=== PATIENT | female | born 1935 | race Caucasian/White ===

== ENCOUNTER → 2020-12-13 | Outpatient (REF) | payer MEDICARE, BC | LOC: M LAB REF 16:23 | PROVIDERS: ATTEND Physician Assistant Medical | DX: I10 Essential (primary) hypertension (principal) ==

== ENCOUNTER 2023-01-26 13:07 | Inpatient (IN) | payer BC, MEDICARE ==
[~2023-01-26] VITALS: Ht 162.6 cm; Wt 58.7 kg
[2023-01-26 14:25] LABS: BASO % 0.2 % (0.0-1.0); HEMATOCRIT 42.1 % (36.0-47.0); HEMOGLOBIN 14.1 g/dl (12.0-15.5); LYMPH # 1.5 10^3/uL (1.5-5.0); LYMPH % 5.8 % (24.0-44.0); MEAN CORPUSCULAR HEMOGLOBIN 31.7 pg (27.0-33.0); MEAN CORPUSCULAR HGB CONC 33.5 g/dl (32.0-36.5); MEAN CORPUSCULAR VOLUME 94.6 fl (80.0-96.0); MONO % 8.6 % (2.0-8.0); NEUTROPHILS % 84.7 % (36.0-66.0); PLATELET COUNT, AUTOMATED 257 10^3/uL (150-450); RED BLOOD COUNT 4.45 10^6/uL (4.00-5.40); WHITE BLOOD COUNT 24.8 10^3/uL (4.0-10.0)
[2023-01-26 14:43] LABS: ALBUMIN 4.2 G/DL (3.2-5.2); BILIRUBIN,DIRECT 0.4 MG/DL (<0.4); BILIRUBIN,TOTAL 1.6 MG/DL (0.3-1.2); TOTAL PROTEIN 7.2 G/DL (5.7-8.2)
[2023-01-26 14:50] LABS: INR 1.04; PROTHROMBIN TIME 13.8 SECONDS (12.5-14.5)
[2023-01-26 14:51] LABS: PARTIAL THROMBOPLASTIN TIME 27.2 SECONDS (24.8-34.2)
[2023-01-26 15:25] LABS: MONO # 2.1 10^3/uL (0.0-0.8)
[2023-01-26] MEDS ORDERED: ISOVUE-370 76% 100ML VIAL As Ordered ONE (17:28)
[2023-01-26] MEDS ORDERED: ONDANSETRON 4MG 2ML VIAL IV ONE (17:45)
[2023-01-26] MEDS: GASTROGRAFIN SOLUTION 30ML PO SCH ×2 (17:48→17:57)
[2023-01-26] MEDS ORDERED: cefTRIAXone SOD 1 GM in D5W MINI-BAG PLUS 50 ML IV SCH (22:00)
[2023-01-26] MEDS ORDERED: ATEN50TA2 PO (22:01)
[2023-01-26] MEDS ORDERED: LEVO75TA4 PO ×2 (22:01)
[2023-01-26] MEDS ORDERED: LEVO50TA5 PO (22:01)
[2023-01-26] MEDS ORDERED: CEPH500C PO (22:10)
[2023-01-26] MEDS ORDERED: LISI5TAB11 PO (22:10)
[2023-01-26] MEDS ORDERED: ONDA4TAB6 SL (22:10)
[2023-01-26] MEDS ORDERED: HOME MED LIST COMPLETE! XX SCH (22:15)
[2023-01-26] MEDS ORDERED: ONDANSETRON 4MG 2ML VIAL IV PRN (22:20)
[2023-01-26] MEDS ORDERED: SODIUM CHLORIDE 0.9% 1000ML IV SCH (22:20)
[2023-01-26] MEDS ORDERED: LR 1,000 ML IV SCH (23:00)
[2023-01-26 23:35] VITALS: BP 168/88; TEMP 96.2; O2SAT 95
[2023-01-27] VITALS (14 sets, daily range): BP systolic 108–176; BP diastolic 68–96; TEMP 98.1–102; O2SAT 95–98
[2023-01-27] MEDS ORDERED: NS 1,000 ML IV ONE (01:40)
[2023-01-27] MEDS ORDERED: ACETAMINOPHEN *IV* 1,000 MG in IV 1 EA IV ONE (02:00)
[2023-01-27] MEDS: PIPERACILLIN/TAZOBACTAM SOD 3.375 GM in D5W MINI-BAG PLUS 50 ML IV SCH ×4 (02:46→18:32)
[2023-01-27 05:59] LABS: HEMATOCRIT 32.2 % (36.0-47.0); MEAN CORPUSCULAR HEMOGLOBIN 31.9 pg (27.0-33.0); MEAN CORPUSCULAR HGB CONC 33.9 g/dl (32.0-36.5); MEAN CORPUSCULAR VOLUME 94.2 fl (80.0-96.0); PLATELET COUNT, AUTOMATED 161 10^3/uL (150-450); RED BLOOD COUNT 3.42 10^6/uL (4.00-5.40); WHITE BLOOD COUNT 28.3 10^3/uL (4.0-10.0)
[2023-01-27 06:13] LABS: HEMOGLOBIN 10.9 g/dl (12.0-15.5)
[2023-01-27] MEDS: LEVOTHYROXINE 50MCG TABLET (0.05MG) PO SCH (06:17)
[2023-01-27 06:36] LABS: ALBUMIN 2.6 G/DL (3.2-5.2); BILIRUBIN,TOTAL 1.3 MG/DL (0.3-1.2); CREATININE FOR GFR 1.05 MG/DL (0.55-1.30); GLOMERULAR FILTRATION RATE 52.7 (>32); POTASSIUM SERUM 3.4 MMOL/L (3.5-5.1); TOTAL PROTEIN 4.8 G/DL (5.7-8.2)
[2023-01-27] MEDS: lisinopriL 5 MG TAB PO SCH (09:46)
[2023-01-27] MEDS: PANTOPRAZOLE 40MG TAB (PROTONIX) PO SCH (09:46)
[2023-01-27] MEDS: HEPARIN SOD (PORCINE) 5000UNITS/ML 1ML VIAL/SYRINGE SC SCH ×2 (09:46→20:01)
[2023-01-27] MEDS ORDERED: NS 1,000 ML IV SCH (10:30)
[2023-01-27] MEDS ORDERED: POTASSIUM CHLORIDE 10MEQ SR TABLET PO ONE (11:00)
[2023-01-27] MEDS ORDERED: METOPROLOL TART 25 MG TABLET PO ONE (15:20)
[2023-01-27] MEDS: METOPROLOL 5 MG/5 ML VIAL IV SCH ×3 (15:45→16:14)
[2023-01-27] MEDS ORDERED: atenoloL 50 MG TAB PO SCH (21:00)
[2023-01-27] MEDS: ONDANSETRON 4MG 2ML VIAL IV SCH (23:21)
[2023-01-27] MEDS ORDERED: DIGOXIN INJ 0.5 MG/2 ML AMP IV ONE (23:55)
[2023-01-28] VITALS (10 sets, daily range): BP systolic 124–153; BP diastolic 69–89; TEMP 96.8–100.7; O2SAT 95–98
[2023-01-28] MEDS: PIPERACILLIN/TAZOBACTAM SOD 3.375 GM in D5W MINI-BAG PLUS 50 ML IV SCH ×4 (00:45→18:32)
[2023-01-28] MEDS ORDERED: diltiaZEM 125 MG in NS 100 ML IV SCH (01:05)
[2023-01-28] MEDS ORDERED: dilTIAZem 25MG/5ML VIAL IV ONE ×2 (01:05)
[2023-01-28] MEDS ORDERED: dilTIAZem 25MG/5ML VIAL IV STA (05:07)
[2023-01-28] MEDS ORDERED: DIGOXIN INJ 0.5 MG/2 ML AMP IV ONE ×2 (06:00→17:00)
[2023-01-28] MEDS: ONDANSETRON 4MG 2ML VIAL IV SCH ×3 (06:35→22:18)
[2023-01-28] MEDS: LEVOTHYROXINE 50MCG TABLET (0.05MG) PO SCH (06:36)
[2023-01-28 07:02] LABS: BASO % 0.1 % (0.0-1.0); HEMATOCRIT 36.1 % (36.0-47.0); HEMOGLOBIN 11.9 g/dl (12.0-15.5); LYMPH % 7.5 % (24.0-44.0); MEAN CORPUSCULAR HEMOGLOBIN 31.1 pg (27.0-33.0); MEAN CORPUSCULAR VOLUME 94.3 fl (80.0-96.0); MONO % 8.8 % (2.0-8.0); NEUTROPHILS # 21.7 10^3/uL (1.5-8.5); NEUTROPHILS % 82.8 % (36.0-66.0); PLATELET COUNT, AUTOMATED 193 10^3/uL (150-450); RED BLOOD COUNT 3.83 10^6/uL (4.00-5.40); WHITE BLOOD COUNT 26.3 10^3/uL (4.0-10.0)
[2023-01-28 07:22] LABS: CREATININE FOR GFR 1.06 MG/DL (0.55-1.30); GLOMERULAR FILTRATION RATE 52.1 (>32); POTASSIUM SERUM 4.1 MMOL/L (3.5-5.1)
[2023-01-28 07:39] LABS: MONO # 2.3 10^3/uL (0.0-0.8)
[2023-01-28 07:45] LABS: ALBUMIN 2.5 G/DL (3.2-5.2); BILIRUBIN,DIRECT 0.5 MG/DL (<0.4); BILIRUBIN,TOTAL 1.3 MG/DL (0.3-1.2); TOTAL PROTEIN 5.2 G/DL (5.7-8.2)
[2023-01-28] MEDS: HEPARIN SOD (PORCINE) 5000UNITS/ML 1ML VIAL/SYRINGE SC SCH (08:33)
[2023-01-28] MEDS: lisinopriL 5 MG TAB PO SCH (08:34)
[2023-01-28] MEDS: PANTOPRAZOLE 40MG TAB (PROTONIX) PO SCH (08:35)
[2023-01-28] MEDS: atenoloL 50 MG TAB PO SCH ×2 (08:35→20:02)
[2023-01-28] MEDS ORDERED: APIXABAN 5 MG TAB (ELIQUIS) PO SCH (09:00)
[2023-01-28] MEDS: APIXABAN 2.5 MG TAB (ELIQUIS) PO SCH ×2 (13:54→20:01)
[2023-01-28] MEDS ORDERED: ACETAMINOPHEN TAB 650MG DOSE (2X325MG) PO PRN (20:05)
[2023-01-29] MEDS: PIPERACILLIN/TAZOBACTAM SOD 3.375 GM in D5W MINI-BAG PLUS 50 ML IV SCH ×4 (00:51→19:39)
[2023-01-29 03:41] VITALS: BP 140/54; TEMP 96.9; O2SAT 97
[2023-01-29 05:11] LABS: BASO % 0.2 % (0.0-1.0); EOS # 0.1 10^3/uL (0.0-0.5); EOS % 0.3 % (0.0-3.0); HEMATOCRIT 38.9 % (36.0-47.0); HEMOGLOBIN 12.8 g/dl (12.0-15.5); LYMPH # 2.1 10^3/uL (1.5-5.0); LYMPH % 9.7 % (24.0-44.0); MEAN CORPUSCULAR HEMOGLOBIN 31.3 pg (27.0-33.0); MEAN CORPUSCULAR HGB CONC 32.9 g/dl (32.0-36.5); MEAN CORPUSCULAR VOLUME 95.1 fl (80.0-96.0); MONO % 10.1 % (2.0-8.0); NEUTROPHILS % 79.1 % (36.0-66.0); PLATELET COUNT, AUTOMATED 214 10^3/uL (150-450); RED BLOOD COUNT 4.09 10^6/uL (4.00-5.40); WHITE BLOOD COUNT 21.5 10^3/uL (4.0-10.0)
[2023-01-29 05:19] LABS: MONO # 2.2 10^3/uL (0.0-0.8)
[2023-01-29] MEDS: LEVOTHYROXINE 75MCG TABLET (0.075MG) PO SCH (05:34)
[2023-01-29] MEDS: ONDANSETRON 4MG 2ML VIAL IV SCH (05:34)
[2023-01-29 05:35] LABS: CALCIUM LEVEL 7.9 MG/DL (8.3-10.6); CREATININE FOR GFR 1.15 MG/DL (0.55-1.30); GLOMERULAR FILTRATION RATE 47.4 (>32)
[2023-01-29] MEDS ORDERED: ONDANSETRON 4MG 2ML VIAL IV PRN (07:10)
[2023-01-29] MEDS: APIXABAN 2.5 MG TAB (ELIQUIS) PO SCH ×2 (08:25→20:18)
[2023-01-29] MEDS: lisinopriL 5 MG TAB PO SCH (08:26)
[2023-01-29] MEDS: atenoloL 50 MG TAB PO SCH ×2 (08:26→20:18)
[2023-01-29] MEDS: PANTOPRAZOLE 40MG TAB (PROTONIX) PO SCH (08:26)
[2023-01-29 08:39] VITALS: BP 132/62; TEMP 98.9; O2SAT 96
[2023-01-29] MEDS: LACTOBACILLUS ACIDOPHILUS CAP (BACID) PO SCH ×2 (09:29→18:04)
[2023-01-29 12:14] LABS: ALBUMIN 2.1 G/DL (3.2-5.2); BILIRUBIN,DIRECT 0.5 MG/DL (<0.4); BILIRUBIN,TOTAL 1.2 MG/DL (0.3-1.2); TOTAL PROTEIN 4.8 G/DL (5.7-8.2)
[2023-01-29 16:00] VITALS: BP 127/75; TEMP 99; O2SAT 97
[2023-01-29 20:00] VITALS: BP 136/91; TEMP 97.9; O2SAT 96
[2023-01-30] MEDS: PIPERACILLIN/TAZOBACTAM SOD 3.375 GM in D5W MINI-BAG PLUS 50 ML IV SCH ×3 (00:28→13:02)
[2023-01-30 04:22] VITALS: BP 134/75; TEMP 97.2; O2SAT 96
[2023-01-30] MEDS: LEVOTHYROXINE 50MCG TABLET (0.05MG) PO SCH (06:10)
[2023-01-30 06:47] LABS: BILIRUBIN,DIRECT 0.4 MG/DL (<0.4); BILIRUBIN,TOTAL 0.9 MG/DL (0.3-1.2); CALCIUM LEVEL 7.9 MG/DL (8.3-10.6); CREATININE FOR GFR 1.22 MG/DL (0.55-1.30); GLOMERULAR FILTRATION RATE 44.3 (>32); POTASSIUM SERUM 3.6 MMOL/L (3.5-5.1); TOTAL PROTEIN 4.5 G/DL (5.7-8.2)
[2023-01-30 08:00] VITALS: BP 136/92; TEMP 97.4; O2SAT 98
[2023-01-30 08:44] LABS: BASO % 0.2 % (0.0-1.0); EOS # 0.1 10^3/uL (0.0-0.5); EOS % 0.8 % (0.0-3.0); HEMATOCRIT 36.6 % (36.0-47.0); HEMOGLOBIN 12.2 g/dl (12.0-15.5); LYMPH # 1.9 10^3/uL (1.5-5.0); LYMPH % 11.8 % (24.0-44.0); MEAN CORPUSCULAR HEMOGLOBIN 31.1 pg (27.0-33.0); MEAN CORPUSCULAR HGB CONC 33.3 g/dl (32.0-36.5); MEAN CORPUSCULAR VOLUME 93.4 fl (80.0-96.0); MONO % 10.8 % (2.0-8.0); NEUTROPHILS # 12.2 10^3/uL (1.5-8.5); NEUTROPHILS % 75.8 % (36.0-66.0); PLATELET COUNT, AUTOMATED 247 10^3/uL (150-450); RED BLOOD COUNT 3.92 10^6/uL (4.00-5.40); WHITE BLOOD COUNT 16.1 10^3/uL (4.0-10.0)
[2023-01-30] MEDS: PANTOPRAZOLE 40MG TAB (PROTONIX) PO SCH (09:07)
[2023-01-30] MEDS: LACTOBACILLUS ACIDOPHILUS CAP (BACID) PO SCH ×2 (09:07→17:24)
[2023-01-30] MEDS: atenoloL 50 MG TAB PO SCH ×2 (09:08→20:18)
[2023-01-30] MEDS: lisinopriL 5 MG TAB PO SCH (09:08)
[2023-01-30] MEDS: APIXABAN 2.5 MG TAB (ELIQUIS) PO SCH ×2 (09:08→20:18)
[2023-01-30 09:15] LABS: MONO # 1.7 10^3/uL (0.0-0.8)
[2023-01-30 16:10] VITALS: BP 127/73; TEMP 97.3; O2SAT 96
[2023-01-30] MEDS: CIPROFLOXACIN 500MG TABLET PO SCH (17:24)
[2023-01-30 19:59] VITALS: BP 130/74; TEMP 98.1; O2SAT 97
[2023-01-30] MEDS: metroNIDAZOLE (FLAGYL) 500MG TABLET PO SCH (22:15)
[2023-01-31 03:46] VITALS: BP 135/76; TEMP 97.9; O2SAT 97
[2023-01-31 05:13] LABS: HEMOGLOBIN 11.7 g/dl (12.0-15.5); MEAN CORPUSCULAR HEMOGLOBIN 31.4 pg (27.0-33.0); MEAN CORPUSCULAR HGB CONC 33.4 g/dl (32.0-36.5); MEAN CORPUSCULAR VOLUME 93.8 fl (80.0-96.0); PLATELET COUNT, AUTOMATED 272 10^3/uL (150-450); RED BLOOD COUNT 3.73 10^6/uL (4.00-5.40); WHITE BLOOD COUNT 13.7 10^3/uL (4.0-10.0)
[2023-01-31] MEDS: LEVOTHYROXINE 75MCG TABLET (0.075MG) PO SCH (05:28)
[2023-01-31] MEDS: metroNIDAZOLE (FLAGYL) 500MG TABLET PO SCH ×3 (05:28→21:50)
[2023-01-31 05:30] LABS: ALBUMIN 1.9 G/DL (3.2-5.2); BILIRUBIN,TOTAL 0.6 MG/DL (0.3-1.2); CALCIUM LEVEL 8.2 MG/DL (8.3-10.6); CREATININE FOR GFR 1.17 MG/DL (0.55-1.30); GLOMERULAR FILTRATION RATE 46.5 (>32); POTASSIUM SERUM 3.6 MMOL/L (3.5-5.1); TOTAL PROTEIN 4.5 G/DL (5.7-8.2)
[2023-01-31 08:00] VITALS: BP 115/75; TEMP 97.7; O2SAT 97
[2023-01-31] MEDS: PANTOPRAZOLE 40MG TAB (PROTONIX) PO SCH (08:46)
[2023-01-31] MEDS: lisinopriL 5 MG TAB PO SCH (08:46)
[2023-01-31] MEDS: LACTOBACILLUS ACIDOPHILUS CAP (BACID) PO SCH ×2 (08:46→18:17)
[2023-01-31] MEDS: atenoloL 50 MG TAB PO SCH ×2 (08:46→21:50)
[2023-01-31] MEDS: APIXABAN 2.5 MG TAB (ELIQUIS) PO SCH ×2 (08:46→21:50)
[2023-01-31 08:52] VITALS: BP 135/64; TEMP 95.5; O2SAT 96
[2023-01-31 08:58] LABS: CLOSTRIDIUM DIFFICILE PCR NEGATIVE (NEGATIVE)
[2023-01-31] MEDS: LOPERAMIDE 2 MG CAPLET PO PRN ×2 (13:30→18:16)
[2023-01-31 15:52] VITALS: BP 140/69; TEMP 97.6; O2SAT 98
[2023-01-31] MEDS: CIPROFLOXACIN 500MG TABLET PO SCH (18:17)
[2023-01-31 19:58] VITALS: BP 126/71; TEMP 98; O2SAT 97
[2023-01-31 21:50] VITALS: BP 126/71
[2023-02-01 04:19] VITALS: BP 131/78; TEMP 97.8; O2SAT 95
[2023-02-01 05:17] LABS: HEMATOCRIT 34.9 % (36.0-47.0); HEMOGLOBIN 11.7 g/dl (12.0-15.5); MEAN CORPUSCULAR HEMOGLOBIN 31.5 pg (27.0-33.0); MEAN CORPUSCULAR HGB CONC 33.5 g/dl (32.0-36.5); MEAN CORPUSCULAR VOLUME 93.8 fl (80.0-96.0); PLATELET COUNT, AUTOMATED 293 10^3/uL (150-450); RED BLOOD COUNT 3.72 10^6/uL (4.00-5.40); WHITE BLOOD COUNT 13.8 10^3/uL (4.0-10.0)
[2023-02-01 05:38] LABS: BILIRUBIN,TOTAL 0.5 MG/DL (0.3-1.2); CREATININE FOR GFR 1.02 MG/DL (0.55-1.30); GLOMERULAR FILTRATION RATE 54.4 (>32); POTASSIUM SERUM 3.4 MMOL/L (3.5-5.1); TOTAL PROTEIN 4.5 G/DL (5.7-8.2)
[2023-02-01] MEDS: LEVOTHYROXINE 50MCG TABLET (0.05MG) PO SCH (05:47)
[2023-02-01] MEDS: metroNIDAZOLE (FLAGYL) 500MG TABLET PO SCH (05:47)
[2023-02-01] MEDS ORDERED: POTASSIUM CHLORIDE 10MEQ SR TABLET PO ONE (07:15)
[2023-02-01 08:02] VITALS: BP 133/62; TEMP 94.4; O2SAT 98
[2023-02-01] MEDS: LOPERAMIDE 2 MG CAPLET PO PRN ×2 (08:09→11:02)
[2023-02-01] MEDS: APIXABAN 2.5 MG TAB (ELIQUIS) PO SCH (08:09)
[2023-02-01] MEDS: LACTOBACILLUS ACIDOPHILUS CAP (BACID) PO SCH (08:09)
[2023-02-01] MEDS: PANTOPRAZOLE 40MG TAB (PROTONIX) PO SCH (08:09)
[2023-02-01] MEDS: lisinopriL 5 MG TAB PO SCH (08:10)
[2023-02-01] MEDS: atenoloL 50 MG TAB PO SCH (08:10)
[2023-02-01] MEDS ORDERED: LOPE2CA PO (10:32)
[2023-02-01] MEDS ORDERED: ATEN50TA2 PO (10:32)
[2023-02-01] MEDS ORDERED: RISATAB3 PO (10:32)
[2023-02-01] MEDS ORDERED: ELIQ2.5T PO (10:32)
[2023-02-01] MEDS ORDERED: XARE15TA PO (11:50)
== END 2023-02-01 13:05 | disposition home or self-care (01) | DRG 872 ==
LOC: M ED 13:07 → M ED INP 13:08 → M MSPAV 23:31 → OBSVTOIN 01-27 01:45 → M PCU 01-27 15:39
PROVIDERS: ADMIT Internal Medicine; ATTEND Internal Medicine
PROC: B246ZZZ Ultrasonography of Right and Left Heart (ICD-10-PCS; principal; 2023-02-01)
DX: A41.9 Sepsis, unspecified organism (principal); N39.0 Urinary tract infection, site not specified; E87.20 Acidosis, unspecified; K56.7 Ileus, unspecified; R74.01 Elevation of levels of liver transaminase levels; I48.91 Unspecified atrial fibrillation; E03.9 Hypothyroidism, unspecified; E80.6 Other disorders of bilirubin metabolism; R65.20 Severe sepsis without septic shock; I10 Essential (primary) hypertension; F40.01 Agoraphobia with panic disorder; M81.0 Age-related osteoporosis without current pathological fracture; R19.7 Diarrhea, unspecified; T36.0X5A Adverse effect of penicillins, initial encounter; Z90.49 Acquired absence of other specified parts of digestive tract; Z90.79 Acquired absence of other genital organ(s); Z79.2 Long term (current) use of antibiotics; Z79.890 Hormone replacement therapy; Z79.899 Other long term (current) drug therapy; Z20.822 Contact with and (suspected) exposure to COVID-19; Z66 Do not resuscitate; Z85.3 Personal history of malignant neoplasm of breast; Z85.828 Personal history of other malignant neoplasm of skin

== ENCOUNTER → 2023-02-02 | Outpatient (REF) | payer MEDICARE ==
[~2023-02-02] MED LIST: ATEN50TA2 PO; CEPH500C PO; ELIQ2.5T PO; LEVO50TA5 PO; LEVO75TA4 PO; LISI5TAB11 PO; LOPE2CA PO; ONDA4TAB6 SL; RISATAB3 PO; XARE15TA PO
[2023-02-02 17:59] LABS: EOSINOPHILS 1 % (0-3); LYMPHOCYTES 7 % (16-44); MONOCYTES 6 % (0-5); NEUTROPHILS 86 % (28-66)
[2023-02-02 18:07] LABS: PLATELET ESTIMATE INCREASED (NORMAL)
== END ==
LOC: M LAB REF 16:20
PROVIDERS: ATTEND Physician Assistant Medical
DX: D72.829 Elevated white blood cell count, unspecified (principal)

== ENCOUNTER → 2024-06-27 | Outpatient (CLI) | payer MEDICARE ==
[~2024-06-27] MED LIST changes: +ONDA-282 SL; -ONDA4TAB6 SL
== END ==
LOC: M EKG 09:00
PROVIDERS: ATTEND Registered Nurse
DX: I49.1 Atrial premature depolarization (principal); Z53.9 Procedure and treatment not carried out, unspecified reason

== ENCOUNTER → 2024-07-08 | Outpatient (REF) | payer MEDICARE | LOC: M LAB REF 12:26 | PROVIDERS: ATTEND Family Medicine | DX: I10 Essential (primary) hypertension (principal) ==